=== PATIENT | male | born 1975 | race Caucasian/White ===

== ENCOUNTER 2018-01-24 13:37 | Emergency (ER) | payer MEDICARE, OTHER ==
[~2018-01-24] VITALS: Ht 177.8 cm; Wt 113.4 kg
--- OUTSIDE RECORDS SUMMARY | 2018-01-24 13:42 | XMS REPORT ---
Author Author DALE ALVES Organization [facility] Address [address] [place] [address] Care Team Providers Care Puncher And Fastener Name Role Phone DALE ALVES Unavailable PROBLEMS Type Condition ICD9-CM Code [id number] Code Onset Dates Condition Status SNOMED Code Problem Generalized anxiety disorder F41.1 Active 91747070 Problem Uncomplicated alcohol dependence F10.20 Active 78535653 Problem Anxiety F41.9 Active 70270297 Problem Mild episode of recurrent major depressive disorder F33.0 Active 800709157 Problem Alcohol dependence in remission F10.21 Active [id number] ALLERGIES Substance Reaction Event Type Date Status Shrimp anaphylaxis Non Drug Allergy Dec, Active ENCOUNTERS Encounter Location Date Diagnosis [facility] [id number] [place] [phone] Feb, [facility] [id number] [place] [phone] Feb, [facility] [address] [place] [address] Jan, [facility] [id number] [place] [phone] Jan, [facility] [id number] [place] [phone] Jan, [facility] [id number] [place] [phone] Jan, [facility] [id number] [place] [phone] Jan, Generalized anxiety disorder F41.1 ; Mild episode of recurrent major depressive disorder F33.0 and Alcohol dependence in remission F10.21 [facility] [id number] [place] [phone] Jan, Seizures R56.9 and Anxiety F41.9 [facility] [address] [facility] [id number] [place] [address] Dec, 2017 Cervicalgia M54.2 and Seizures R56.9 [facility] [address] [facility] [id number] [place] [address] 16 Dec, 2017 Cervicalgia M54.2 and Seizures R56.9 IMMUNIZATIONS No Known Immunizations SOCIAL HISTORY Never Assessed REASON FOR VISIT Establish Care, PT reports his main concern is he currently takes depakote and is running low. PT states Dr. Salazar at the [facility] in [place]. -Min GALAN , PT has been having muscle spasms on his left side of neck and his left arm. Pt describes it has burning, Pt notes it was treated in the past with Cyclobenzaprine -Min GALAN PLAN OF CARE Activity Details Follow Up 4 Weeks Reason:seizures VITAL SIGNS Height 74 in 2017-12-19 Weight 179.2 lbs 2017-12-19 Temperature 98.2 degrees Fahrenheit 2017-12-19 Heart Rate 105 bpm 2017-12-19 Respiratory Rate 20 2017-12-19 Oximetry 94 % 2017-12-19 BMI 23.01 kg/m2 2017-12-19 Blood pressure systolic 122 mmHg 2017-12-19 Blood pressure diastolic 72 mmHg 2017-12-19 MEDICATIONS Medication Instructions Dosage Frequency Start Date End Date Duration Status Lexapro Active Depakote Active Depakote 500 mg Orally 2 times a day 1 tablet 12h Dec, Active Amitriptyline HCl Active Abilify Active Cyclobenzaprine HCl 10 mg Orally 2 times a day 1 tablet as needed 12h Dec, Active Meclizine HCl Active RESULTS No Results PROCEDURES Procedure Date Ordered Result Body Site [facility] VISIT NEW PATIENT Dec 19, 2017 INSTRUCTIONS MEDICATIONS ADMINISTERED No Known Medications MEDICAL (GENERAL) HISTORY Type Description Date Medical History focal epilepsy Medical History Depression Surgical History Broke pinky on left hand Hospitalization History Seizure activity x 3 days [place] Hospitalization History PT was in a [place], [place] x27 days [phone]
--- OUTSIDE RECORDS SUMMARY | 2018-01-24 13:42 | XMS REPORT ---
Author Rudi Santos [facility] Address Unknown Phone Unavailable Care Team Providers Care Milieu Coordinator Name Role Phone Rudi Magaña Unavailable Allergies, Adverse Reactions, Alerts Substance Reaction Event Type N.K.D.A. Info Not Available Non Drug Allergy Problems Problem Type Condition Code Onset Dates Condition Status Problem History of migraine Z86.69 Active Assessment Seizure disorder G40.909 Active Problem Vertigo R42 Active Assessment History of migraine Z86.69 Active Assessment Folliculitis L73.9 Active Medications Medication Code System Code Instructions Start Date End Date Status Dosage Sumatriptan Succinate [facility] [address]-41 100 MG Orally Twice a day 1 tab at onset of headache, repeat in 2 hrs if headache persists Flonase Allergy Relief [facility] [address]-91 50 MCG/ACT Nasally bid Feb 21, 2016 1 spray in each nostril Triamcinolone Acetonide [facility] [address]-63 0.1 % Externally Twice a day Apr 10, 2016 May 08, 2016 1 application to affected area Amitriptyline HCl [facility] [address]-98 10 MG Orally Once a day Apr 10, 2016 1 tablet Sumatriptan Succinate [facility] [address]-00 100 MG Orally Twice a day Feb 21, 2016 1 tab at onset of headache, repeat in 2 hrs if headache persists Meclizine HCl [facility] [address]-04 25 MG Orally every 6 hrs as needed for dizziness Feb 21, 2016 1 tablet as needed Doxycycline Monohydrate [facility] [address]-11 100 MG Orally every 12 hrs AprApr 24, 2016 1 capsule Levetiracetam [facility] [address]-40 1000 MG Orally bid 1 tablet Procedures Procedure Coding System Code Date ESTAB PT LEVEL III CPT-4 79142 Apr 10, 2016 REPLACED BY [facility] VISIT ESTABLISHED PATIENTS CPT-4 G0467 Apr 10, 2016 Vital Signs Date/Time: Apr 10, 2016 Temperature 97.4 F Weight 273.0 lbs Height 74 in Pain Scale 2 0-10 BMI 35.05 Index Blood Pressure Diastolic 68 mm Hg Blood Pressure Systolic 104 mm Hg Results No Known Results Summary Purpose e[employer]Works Submission
--- OUTSIDE RECORDS SUMMARY | 2018-01-24 13:42 | XMS REPORT ---
Author Rudi Santos Organization [employer] Address Unknown Phone Unavailable Care Team Providers Care Engineer Conductor Name Role Phone Rudi aMgaña CP Unavailable Allergies, Adverse Reactions, Alerts Substance Reaction Event Type N.K.D.A. Info Not Available Non Drug Allergy Problems Problem Type Condition Code Onset Dates Condition Status Problem History of migraine Z86.69 Active Assessment Vertigo R42 Active Problem Vertigo R42 Active Assessment Acute sinusitis J01.90 Active Assessment Seizure disorder G40.909 Active Assessment History of migraine Z86.69 Active Medications Medication Code System Code Instructions Start Date End Date Status Dosage Levetiracetam [facility] [address]-82 500 MG Orally bid Jan 24, 2016 1 tablet Azithromycin [facility] [address]-78 250 MG Orally Once a day Feb 21, 2016 Mar 06, 2016 2 tablets on the first day, then 1 tablet daily for 4 days Sumatriptan Succinate [facility] [address]-50 100 MG Orally Twice a day Feb 21, 2016 1 tab at onset of headache, repeat in 2 hrs if headache persists Levetiracetam [facility] [address]-52 1000 MG Orally bid 1 tablet Meclizine HCl [facility] [address]-12 25 MG Orally every 6 hrs as needed for dizziness Feb 21, 2016 1 tablet as needed Flonase Allergy Relief [facility] [address]-57 50 MCG/ACT Nasally bid Feb 21, 2016 1 spray in each nostril Procedures Procedure Coding System Code Date ESTAB PT LEVEL III CPT-4 65807 Feb 21, 2016 [facility] VISIT ESTABLISHED PATIENTS CPT-4 G0467 Feb 21, 2016 Vital Signs Date/Time: Feb 21, 2016 Temperature 97.6 F Weight 278 lbs Height 74 in Pain Scale 6 0-10 BMI 35.69 Index Blood Pressure Diastolic 75 mm Hg Blood Pressure Systolic 113 mm Hg Results No Known Results Summary Purpose [employer] Submission
[2018-01-24] MEDS ORDERED: PROCHLORPERAZINE 10 MG/2ML INJ (COMPAZINE) IV ONE (14:45)
[2018-01-24] MEDS ORDERED: NS IV 1000 ML 1,000 ML IV SCH (14:45)
[2018-01-24] MEDS ORDERED: diphenhydrAMINE 50 MG/ML INJ (BENADRYL) IVP ONE (14:45)
[2018-01-24] MEDS ORDERED: KETOROLAC 30 MG/ML VIAL IVP ONE (14:45)
--- NOTE | 2018-01-24 14:45 | ED Headache ---
General Chief Complaint: Head/Cervical Problems Stated Complaint: HEADACHE;LIGHT HEADED Source: patient History of Present Illness Date Seen by Provider: Jan 24, 2018 Time Seen by Provider: 14:35 Initial Comments This 42-year-old white male presents with a complaint of a headache that began 2 hours prior to presentation emergency department. Patient has had a long- standing history of headaches that have been caused by migraines. 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 The patient was visiting with friends 2 hours ago and his headache which is global and severe began. The patient has had no associated fever, chills, photophobia, stiff neck, vomiting, or diaphoresis. Allergies and Home Medications Allergies Coded Allergies: No Known Drug Allergies (Unverified , 01/24/18) Patient Home Medication List Home Medication List Reviewed: Yes Review of Systems Review of Systems Constitutional: No chills, No fever; malaise Eyes: Denies Blurred Vision, Denies Photophobia Ears, Nose, Mouth, Throat: denies ear pain Respiratory: No cough Cardiovascular: No chest pain Gastrointestinal: No diarrhea, No nausea Genitourinary: no symptoms reported Musculoskeletal: No back pain Skin: No rash Psychiatric/Neurological: No Symptoms Reported Past Ttgbxig-Rbires-Abttyt Hx Past Med/Social Hx: Reviewed Nursing Past Med/Soc Hx Physical Exam Vital Signs Vital Signs - First Documented 01/24/18 13:37 Temp 98.6 Pulse 88 Resp 18 B/P (MAP) 120/77 (91) Pulse Ox 98 O2 Delivery Room Air Capillary Refill : Height, Weight, BMI Height: '" Weight: lbs. oz. kg; BMI Method: General Appearance: WD/WN, mild distress HEENT: normal ENT inspection Neck: normal inspection Cardiovascular: regular rate, rhythm Respiratory: chest non-tender, lungs clear Gastrointestinal: normal bowel sounds, non tender, soft Back: normal inspection Extremities: normal range of motion, non-tender, normal inspection Psychiatric: oriented x 3 Crainal Nerves: normal hearing, normal speech, PERRL; No abnormal eye position Motor/Sensory: no motor deficit, no sensory deficit Skin: normal color, warm/dry Progress/Results/Core Measures Results/Orders My Orders Orders - CHRISTOPHE ROTHMAN MD Iv 1000 Ml (Sodium Chloride 0.9%) (01/24/18 14:45) Diphenhydramine Injection (Benadryl Inje (01/24/18 14:45) Ketorolac Injection (Toradol Injection) (01/24/18 14:45) Prochlorperazine Injection (Compazine In (01/24/18 14:45) Medications Given in ED Current Medications Medications Dose Ordered Sig/Luis Route Start Time Stop Time Status Last Admin Dose Admin Diphenhydramine HCl 25 mg ONCE ONCE IVP 01/24/18 14:45 01/24/18 14:46 DC 01/24/18 15:16 25 MG Ketorolac Tromethamine 30 mg ONCE ONCE IVP 01/24/18 14:45 01/24/18 14:46 DC 01/24/18 15:15 30 MG Prochlorperazine Edisylate 10 mg ONCE ONCE IV 01/24/18 14:45 01/24/18 14:46 DC 01/24/18 15:15 10 MG Vital Signs/I&O 01/24/18 13:37 Temp 98.6 Pulse 88 Resp 18 B/P (MAP) 120/77 (91) Pulse Ox 98 O2 Delivery Room Air Progress Progress Note : Time: 15:52 Progress Note The patient's headache was treated with accommodation of the Toradol, Compazine , and Benadryl IV. Patient's headache abated and he wanted to go home and follow up with his doctor on Saturday. Departure Impression Primary Impression: Migraine Qualified Codes: G43.009 - Migraine without aura, not intractable, without status migrainosus Disposition: 01 HOME, SELF-CARE Condition: Improved Departure-Patient Inst. Decision time for Depature: 15:54 Referrals: [facility] [place] Patient Instructions: Migraine Headache (DC) Add. Discharge Instructions: Close follow-up with them [facility] on Saturday. Rest at home this . Return if any problems or questions. All discharge instructions reviewed with patient and/or family. Voiced understanding. CHRISTOPHE ROTHMAN MD Jan 24, 2018 14:45
[2018-01-24 16:19] VITALS: BP 103/64
== END 2018-01-24 16:19 | disposition home or self-care (01) ==
LOC: EDUNIT# 13:37 → ER 13:39
DX: G43.909 Migraine, unspecified, not intractable, without status migrainosus (principal); G40.109 Localization-related (focal) (partial) symptomatic epilepsy and epileptic syndromes with simple partial seizures, not intractable, without status epilepticus; Z87.820 Personal history of traumatic brain injury
CPT/HCPCS: 96361; 96374; 96375; 99283

== ENCOUNTER 2018-08-10 07:57 | Emergency (ER) | payer MEDICARE, MEDICAID ==
[~2018-08-10] VITALS: Ht 190.5 cm; Wt 122.5 kg
[2018-08-10] MEDS ORDERED: DEPAKOTE (08:12)
[2018-08-10] MEDS ORDERED: NS IV 1000 ML 1,000 ML IV ONE (08:14)
[2018-08-10] MEDS ORDERED: PROMETHAZINE INJ 25 MG/ML (PHENERGAN) AMP IVP ONE (08:15)
[2018-08-10] MEDS ORDERED: KETOROLAC 30 MG/ML VIAL IVP ONE (08:15)
[2018-08-10 08:34] LABS: BASOPHILS % (AUTO) 0 % (0-10); EOSINOPHILS # (AUTO) 0.2 10^3/uL (0.0-0.3); EOSINOPHILS % (AUTO) 4 % (0-10); HEMATOCRIT 41 % (40-54); HEMOGLOBIN 14.1 G/DL (13.3-17.7); LYMPHOCYTES # (AUTO) 1.1 X 10^3 (1.0-4.0); LYMPHOCYTES % (AUTO) 24 % (12-44); MEAN CORPUSCULAR HEMOGLOBIN 30 PG (25-34); MEAN CORPUSCULAR HGB CONC 35 G/DL (32-36); MEAN CORPUSCULAR VOLUME 87 FL (80-99); MEAN PLATELET VOLUME 9.5 FL (7.4-10.4); MONOCYTES # (AUTO) 0.6 X 10^3 (0.0-1.0); MONOCYTES % (AUTO) 12 % (0-12); NEUTROPHILS # (AUTO) 2.8 X 10^3 (1.8-7.8); NEUTROPHILS % (AUTO) 60 % (42-75); PLATELET COUNT 223 10^3/uL (130-400); RED CELL DISTRIBUTION WIDTH 12.5 % (10.0-14.5); WHITE BLOOD COUNT 4.6 10^3/uL (4.3-11.0)
--- NOTE | 2018-08-10 08:42 | ED Headache ---
General Chief Complaint: Head/Cervical Problems Stated Complaint: MIGRAINE Nursing Triage Note: ARRIVED VIA AMB TO ROOM 06 WITH COMPLAINTS OF A MIGRAINE FOR A FEW DAYS. HAS NOT TAKEN ANYTHING FOR THE PAIN. Nursing Sepsis Screen: No Definite Risk Source: patient Exam Limitations: no limitations History of Present Illness Date Seen by Provider: Aug 10, 2018 Time Seen by Provider: 08:07 Initial Comments This 42-year-old gentleman presents to the emergency room with a migraine that started yesterday. He does have a history of migraines. He sometimes treats them with Imitrex but he does not have any Imitrex at present. He states he has had episodes of "dazing out". He reports being diagnosed with focal epilepsy by a neurologist on the [facility]. He does take Depakote for this. His associated symptoms are nausea, "fluffy vision", ringing in his ears, and sound sensitivity. He took ibuprofen last night and his Depakote this morning. By description, the seizures he describes sound like absence seizures. He thinks he may have had a couple over the last 24 hours. Allergies and Home Medications Allergies Coded Allergies: No Known Drug Allergies (Unverified , 01/24/18) Patient Home Medication List Home Medication List Reviewed: Yes Review of Systems Review of Systems Constitutional: no symptoms reported Eyes: See HPI (migraine aura) Ears, Nose, Mouth, Throat: see HPI Respiratory: no symptoms reported Cardiovascular: no symptoms reported Gastrointestinal: see HPI Genitourinary: no symptoms reported Musculoskeletal: no symptoms reported Skin: no symptoms reported Psychiatric/Neurological: See HPI Past Rgfkotg-Knsjuv-Xmqvzi Hx Past Med/Social Hx: Reviewed and Corrections made Patient Social History Type Used: Cigarettes 2nd Hand Smoke Exposure: Yes Recent Foreign Travel: No Contact w/Someone Who Travel: No Recent Infectious Disease Expo: No Recent Hopitalizations: No Seasonal Allergies Seasonal Allergies: No Past Medical History Surgeries: No Respiratory: No Cardiac: No Neurological: Yes Headaches /Migraines, Seizure Disorder ("focal epilepsy") Genitourinary: No Gastrointestinal: No Musculoskeletal: No Endocrine: No HEENT: No Cancer: No Did You Recieve Any Treatments: No Psychosocial: No Integumentary: No Blood Disorders: No Physical Exam Vital Signs Vital Signs - First Documented 08/10/18 08:04 Temp 95.9 Pulse 62 Resp 16 Pulse Ox 99 O2 Delivery Room Air Capillary Refill : Less Than 3 Seconds Height, Weight, BMI Height: 6'3.00" Weight: 270lbs. oz. 122.949904jw; BMI Method:Stated General Appearance: WD/WN, mild distress HEENT: PERRL/EOMI, normal ENT inspection, TMs normal, pharynx normal Neck: normal inspection Cardiovascular: regular rate, rhythm, no edema, no murmur Respiratory: lungs clear, normal breath sounds, no respiratory distress, no accessory muscle use Extremities: normal inspection Psychiatric: alert, oriented x 3 Crainal Nerves: normal hearing, normal speech, PERRL Motor/Sensory: no motor deficit, no sensory deficit Skin: normal color, warm/dry Progress/Results/Core Measures Results/Orders Lab Results Laboratory Tests Test 08/10/18 08:25 Range/Units White Blood Count 4.6 4.3-11.0 10^3/uL Red Blood Count 4.68 4.35-5.85 10^6/uL Hemoglobin 14.1 13.3-17.7 G/DL Hematocrit 41 40-54 % Mean Corpuscular Volume 87 80-99 FL Mean Corpuscular Hemoglobin 30 25-34 PG Mean Corpuscular Hemoglobin Concent 35 32-36 G/DL Red Cell Distribution Width 12.5 10.0-14.5 % Platelet Count 223 130-400 10^3/uL Mean Platelet Volume 9.5 7.4-10.4 FL Neutrophils (%) (Auto) 60 42-75 % Lymphocytes (%) (Auto) 24 12-44 % Monocytes (%) (Auto) 12 0-12 % Eosinophils (%) (Auto) 4 0-10 % Basophils (%) (Auto) 0 0-10 % Neutrophils # (Auto) 2.8 1.8-7.8 X 10^3 Lymphocytes # (Auto) 1.1 1.0-4.0 X 10^3 Monocytes # (Auto) 0.6 0.0-1.0 X 10^3 Eosinophils # (Auto) 0.2 0.0-0.3 10^3/uL Basophils # (Auto) 0.0 0.0-0.1 10^3/uL Sodium Level 139 135-145 MMOL/L Potassium Level 3.7 3.6-5.0 MMOL/L Chloride Level 107 98-107 MMOL/L Carbon Dioxide Level 24 21-32 MMOL/L Anion Gap 8 5-14 MMOL/L Blood Urea Nitrogen 16 7-18 MG/DL Creatinine 1.03 0.60-1.30 MG/DL Estimat Glomerular Filtration Rate > 60 BUN/Creatinine Ratio 16 Glucose Level 96 70-105 MG/DL Calcium Level 9.3 8.5-10.1 MG/DL Magnesium Level 2.1 1.8-2.4 MG/DL Valproic Acid (Depakene) Level 56.2 50.0-100.0 UG/ML My Orders Orders - BUCK BOSE MD Ketorolac Injection (Toradol Injection) (08/10/18 08:15) Promethazine Injection (Phenergan Injec (08/10/18 08:15) Saline Lock/Iv-Start (08/10/18 08:14) Ns Iv 1000 Ml (Sodium Chloride 0.9%) (08/10/18 08:14) Basic Metabolic Panel (08/10/18 08:14) Cbc With Automated Diff (08/10/18 08:14) Magnesium (08/10/18 08:14) Valproic Acid (08/10/18 08:14) Ondansetron Injection (Zofran Injectio (08/10/18 09:15) Medications Given in ED Current Medications Medications Dose Ordered Sig/Luis Route Start Time Stop Time Status Last Admin Dose Admin Ketorolac Tromethamine 30 mg ONCE ONCE IVP 08/10/18 08:15 08/10/18 08:16 DC 08/10/18 08:25 30 MG Promethazine HCl 25 mg ONCE ONCE IVP 08/10/18 08:15 08/10/18 08:16 DC 08/10/18 08:26 25 MG Sodium Chloride 1,000 ml @ 0 mls/hr Q0M ONCE IV 08/10/18 08:14 08/10/18 08:17 DC 08/10/18 08:26 1,000 MLS/HR Vital Signs/I&O 08/10/18 08:04 Temp 95.9 Pulse 62 Resp 16 B/P (MAP) Pulse Ox 99 O2 Delivery Room Air Progress Progress Note #1: Time: 08:50 Progress Note Patient is being treated with IV fluids, Phenergan, and Toradol. We will reassess when these therapies are done. Electrolytes and Depakote level are being checked. Progress Note #2: Time: 09:03 Progress Note Patient is feeling better. He still has some residual nausea. He believes he can return home and rest now. Zofran will be given before dismissal. Labs were reviewed and were unremarkable. Departure Impression Primary Impression: Migraine Qualified Codes: G43.909 - Migraine, unspecified, not intractable, without status migrainosus Additional Impression: Nausea Disposition: 01 HOME, SELF-CARE Condition: Improved Departure-Patient Inst. Decision time for Depature: 09:03 Referrals: [facility]/ (PCP) Primary Care Physician DALE ALVES (Family) Primary Care Physician Patient Instructions: Migraine Headache (DC) Add. Discharge Instructions: Drink plenty of clear liquids. Try to rest in a quiet, calm, dark environment for the next several hours. Continue your medications as previously prescribed. For pain 8 take ibuprofen up to 600 mg every 6 hours as needed and/or Tylenol ( acetaminophen) up to 1000 mg every 6 hours as needed. Return to care if you have worsening symptoms or you are not improving as expected. Fill the Zofran prescription provided if needed to treat nausea. All discharge instructions reviewed with patient and/or family. Voiced understanding. Scripts Ondansetron (Ondansetron Odt) 4 Mg Tab.rapdis 4 MG SL Q4H PRN for NAUSEA/VOMITING, #10 TAB Prov: BUCK BOSE MD 08/10/18 BUCK BOSE MD Aug 10, 2018 08:42
[2018-08-10 08:50] LABS: BUN/CREATININE RATIO 16; CALCIUM 9.3 MG/DL (8.5-10.1); CARBON DIOXIDE 24 MMOL/L (21-32); CHLORIDE 107 MMOL/L (98-107); CREATININE SERUM 1.03 MG/DL (0.60-1.30); GFR ESTIMATED > 60; GLUCOSE 96 MG/DL (70-105); MAGNESIUM 2.1 MG/DL (1.8-2.4); POTASSIUM 3.7 MMOL/L (3.6-5.0); SODIUM 139 MMOL/L (135-145)
[2018-08-10 08:57] LABS: VALPROIC ACID 56.2 UG/ML (50.0-100.0)
[2018-08-10] MEDS ORDERED: ONDA4TAB11 SL (09:11)
[2018-08-10] MEDS ORDERED: ONDANSETRON 4 MG/2 ML (SDV) Z0FRAN IVP ONE (09:15)
[2018-08-10 09:22] VITALS: BP 105/67
== END 2018-08-10 09:21 | disposition home or self-care (01) ==
LOC: EDUNIT# 07:57 → ER 08:00
DX: G43.909 Migraine, unspecified, not intractable, without status migrainosus (principal); R11.0 Nausea; G40.909 Epilepsy, unspecified, not intractable, without status epilepticus; Z77.22 Contact with and (suspected) exposure to environmental tobacco smoke (acute) (chronic)
CPT/HCPCS: 36415; 80048; 80164; 83735; 85025

== ENCOUNTER 2018-09-18 13:33 | Emergency (ER) | payer MEDICARE, MEDICAID ==
[~2018-09-18] VITALS: Ht 190.5 cm; Wt 113.4 kg
[~2018-09-18 13:33] MED LIST: DEPAKOTE; ONDA4TAB11 SL
[2018-09-18] MEDS ORDERED: NS IV 1000 ML 1,000 ML IV ONE (13:40)
[2018-09-18] MEDS ORDERED: KETOROLAC 30 MG/ML VIAL IVP STA (13:40)
[2018-09-18 13:52] LABS: BASOPHILS % (AUTO) 0 % (0-10); EOSINOPHILS % (AUTO) 0 % (0-10); HEMATOCRIT 40 % (40-54); LYMPHOCYTES # (AUTO) 1.2 X 10^3 (1.0-4.0); LYMPHOCYTES % (AUTO) 15 % (12-44); MEAN CORPUSCULAR HEMOGLOBIN 30 PG (25-34); MEAN CORPUSCULAR HGB CONC 35 G/DL (32-36); MEAN CORPUSCULAR VOLUME 86 FL (80-99); MEAN PLATELET VOLUME 9.5 FL (7.4-10.4); MONOCYTES # (AUTO) 0.4 X 10^3 (0.0-1.0); MONOCYTES % (AUTO) 5 % (0-12); NEUTROPHILS # (AUTO) 6.4 X 10^3 (1.8-7.8); NEUTROPHILS % (AUTO) 80 % (42-75); PLATELET COUNT 310 10^3/uL (130-400); RED CELL DISTRIBUTION WIDTH 12.8 % (10.0-14.5); WHITE BLOOD COUNT 8.1 10^3/uL (4.3-11.0)
[2018-09-18 14:10] LABS: ALANINE AMINOTRANSFERASE 24 U/L (0-55); ALBUMIN 4.5 GM/DL (3.2-4.5); ALKALINE PHOSPHATASE 63 U/L (40-136); BILIRUBIN,TOTAL 1.7 MG/DL (0.1-1.0); BUN/CREATININE RATIO 20; CALCIUM 9.9 MG/DL (8.5-10.1); CARBON DIOXIDE 16 MMOL/L (21-32); CHLORIDE 102 MMOL/L (98-107); CREATININE SERUM 1.46 MG/DL (0.60-1.30); GFR ESTIMATED 53; GLUCOSE 101 MG/DL (70-105); MAGNESIUM 1.8 MG/DL (1.8-2.4); POTASSIUM 4.1 MMOL/L (3.6-5.0); SODIUM 131 MMOL/L (135-145); TOTAL PROTEIN 7.5 GM/DL (6.4-8.2)
[2018-09-18 14:38] LABS: BILIRUBIN,URINE NEGATIVE (NEGATIVE); CLARITY,URINE CLEAR; COLOR,URINE YELLOW; GLUCOSE, URINE (UA) NEGATIVE (NEGATIVE); KETONES,URINE 3+ (NEGATIVE); LEUKOCYTE ESTERASE ,URINE NEGATIVE (NEGATIVE); NITRITE,URINE NEGATIVE (NEGATIVE); PH,URINE 5 (5-9); PROTEIN,URINE NEGATIVE (NEGATIVE); UROBILINOGEN,URINE NORMAL (NORMAL)
[2018-09-18 14:45] LABS: BACTERIA,URINE NEGATIVE /HPF; SQUAMOUS EPITHELIAL CELL,UR RARE /HPF
[2018-09-18] MEDS ORDERED: LACTATED RINGERS 1,000 ML IV ONE (15:02)
--- NOTE | 2018-09-18 15:06 | ED Syncope ---
General Chief Complaint: Dizziness/Syncope Stated Complaint: LOSS OF CONSCIOUSNESS Nursing Triage Note: PT STATES HE WAS AT WORK AND BECAME DIZZY ABOUT 1-2 HRS AGO. ALSO NAUSEA, HEADACHE, SWEATS, AND SYNCOPAL EPISODE WHILE SITTING DOWN, DID NOT FALL. Source of Information: Patient Exam Limitations: No Limitations History of Present Illness Date Seen by Provider: September 18, 2018 Time Seen by Provider: 13:34 Initial Comments Here with report of syncopal episode. Apparently he was at work when he became nauseated and was sweating. He was sitting down and then laid down when he passed out. Did not have any injuries. EMS was summoned. Denies episode like this previously. 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 Denies vomiting or diarrhea but does have some nausea. Also complains of headache. Timing/Prior Episodes: No Prior History Symptoms Prior to Episode: Lightheadedness, Nausea Precipitating Factors: Activity Loss of Consciousness: Brief (Seconds) Current Symptoms: No Chest Pain, No Diaphoresis; Headache, Lightheadedness, Nausea; No Shallow/Rapid Breathing, No Weak/Absent Pulse, No Weakness Allergies and Home Medications Allergies Coded Allergies: iodine (Verified Allergy, Unknown, 09/18/18) Home Medications Ondansetron 4 Mg Tab.rapdis, 4 MG SL Q4H PRN for NAUSEA/VOMITING Prescribed by: BUCK JAFFE on 08/10/18 0911 Patient Home Medication List Home Medication List Reviewed: Yes Review of Systems Constitutional: no symptoms reported EENTM: no symptoms reported Respiratory: no symptoms reported Cardiovascular: see HPI, palpitations, syncope Gastrointestinal: No abdominal pain; nausea Genitourinary: no symptoms reported Musculoskeletal: no symptoms reported Skin: no symptoms reported Psychiatric/Neurological: See HPI All Other Systems Reviewed Negative Unless Noted: Yes Past Fzkzvnp-Dhswzy-Euovam Hx Past Med/Social Hx: Reviewed Nursing Past Med/Soc Hx Patient Social History Type Used: Cigarettes 2nd Hand Smoke Exposure: Yes Recent Foreign Travel: No Contact w/Someone Who Travel: No Recent Infectious Disease Expo: No Recent Hopitalizations: No Seasonal Allergies Seasonal Allergies: No Past Medical History Surgeries: No Respiratory: No Cardiac: No Neurological: Yes Headaches /Migraines, Seizure Disorder Genitourinary: No Gastrointestinal: No Musculoskeletal: No Endocrine: No HEENT: No Cancer: No Did You Recieve Any Treatments: No Psychosocial: No Integumentary: No Blood Disorders: No Family Medical History Reviewed Nursing Family Hx Physical Exam Vital Signs Vital Signs - First Documented 09/18/18 13:34 Temp 98.3 Pulse 76 Resp 24 B/P (MAP) 122/88 (99) Pulse Ox 96 O2 Delivery Room Air Capillary Refill : Less Than 3 Seconds Height, Weight, BMI Height: 6'3.00" Weight: 250lbs. oz. 113.515439pw; BMI Method:Stated General Appearance: No Apparent Distress, WD/WN HEENT: PERRL/EOMI, Pharynx Normal Neck: Non Tender, Supple Cardiovascular: Regular Rate, Rhythm, No Murmur Respiratory: Lungs Clear, Normal Breath Sounds Gastrointestinal: Non Tender, Soft Back: Normal Inspection, No CVA Tenderness, No Vertebral Tenderness Extremities: Normal Range of Motion, Non Tender Neurologic/Psychiatric: Alert, Oriented x3 Cranial Nerves: Normal Hearing, Normal Speech, PERRL Motor/Sensory: No Motor Deficit, No Sensory Deficit Skin: Normal Color, Warm/Dry Progress/Results/Core Measures Results/Orders Lab Results Laboratory Tests Test 09/18/18 13:40 09/18/18 14:30 Range/Units White Blood Count 8.1 4.3-11.0 10^3/uL Red Blood Count 4.65 4.35-5.85 10^6/uL Hemoglobin 14.0 13.3-17.7 G/DL Hematocrit 40 40-54 % Mean Corpuscular Volume 86 80-99 FL Mean Corpuscular Hemoglobin 30 25-34 PG Mean Corpuscular Hemoglobin Concent 35 32-36 G/DL Red Cell Distribution Width 12.8 10.0-14.5 % Platelet Count 310 130-400 10^3/uL Mean Platelet Volume 9.5 7.4-10.4 FL Neutrophils (%) (Auto) 80 H 42-75 % Lymphocytes (%) (Auto) 15 12-44 % Monocytes (%) (Auto) 5 0-12 % Eosinophils (%) (Auto) 0 0-10 % Basophils (%) (Auto) 0 0-10 % Neutrophils # (Auto) 6.4 1.8-7.8 X 10^3 Lymphocytes # (Auto) 1.2 1.0-4.0 X 10^3 Monocytes # (Auto) 0.4 0.0-1.0 X 10^3 Eosinophils # (Auto) 0.0 0.0-0.3 10^3/uL Basophils # (Auto) 0.0 0.0-0.1 10^3/uL Sodium Level 131 L 135-145 MMOL/L Potassium Level 4.1 3.6-5.0 MMOL/L Chloride Level 102 98-107 MMOL/L Carbon Dioxide Level 16 L 21-32 MMOL/L Anion Gap 13 5-14 MMOL/L Blood Urea Nitrogen 29 H 7-18 MG/DL Creatinine 1.46 H 0.60-1.30 MG/DL Estimat Glomerular Filtration Rate 53 BUN/Creatinine Ratio 20 Glucose Level 101 70-105 MG/DL Calcium Level 9.9 8.5-10.1 MG/DL Corrected Calcium 9.5 8.5-10.1 MG/DL Magnesium Level 1.8 1.8-2.4 MG/DL Total Bilirubin 1.7 H 0.1-1.0 MG/DL Aspartate Amino Transf (AST/SGOT) 34 5-34 U/L Alanine Aminotransferase (ALT/SGPT) 24 0-55 U/L Alkaline Phosphatase 63 40-136 U/L Troponin I < 0.028 <0.028 NG/ML Total Protein 7.5 6.4-8.2 GM/DL Albumin 4.5 3.2-4.5 GM/DL Urine Color YELLOW Urine Clarity CLEAR Urine pH 5 5-9 Urine Specific [place] 1.015 L 1.016-1.022 Urine Protein NEGATIVE NEGATIVE Urine Glucose (UA) NEGATIVE NEGATIVE Urine Ketones 3+ H NEGATIVE Urine Nitrite NEGATIVE NEGATIVE Urine Bilirubin NEGATIVE NEGATIVE Urine Urobilinogen NORMAL NORMAL MG/DL Urine Leukocyte Esterase NEGATIVE NEGATIVE Urine RBC (Auto) NEGATIVE NEGATIVE Urine RBC NONE /HPF Urine WBC NONE /HPF Urine Squamous Epithelial Cells RARE /HPF Urine Crystals NONE /LPF Urine Bacteria NEGATIVE /HPF Urine Casts NONE /LPF Urine Mucus NEGATIVE /LPF Urine Culture Indicated NO My Orders Orders - LEWIS GAYTAN MD Cbc With Automated Diff (09/18/18 13:40) Comprehensive Metabolic Panel (09/18/18 13:40) Magnesium (09/18/18 13:40) Troponin I (09/18/18 13:40) Ua Culture If Indicated (09/18/18 13:40) Ekg Tracing (09/18/18 13:40) Monitor-Rhythm Ecg Trace Only (09/18/18 13:40) Ed Iv/Invasive Line Start (09/18/18 13:40) Ns Iv 1000 Ml (Sodium Chloride 0.9%) (09/18/18 13:40) Ketorolac Injection (Toradol Injection) (09/18/18 13:40) Ed Iv/Invasive Line Start (09/18/18 15:02) Lactated Ringers (Lr 1000 Ml Iv Solution (09/18/18 15:02) Medications Given in ED Current Medications Medications Dose Ordered Sig/Luis Route Start Time Stop Time Status Last Admin Dose Admin Lactated Ringer's 1,000 ml @ 0 mls/hr Q0M ONCE IV 09/18/18 15:02 09/18/18 15:04 DC 09/18/18 15:23 1,000 MLS/HR Sodium Chloride 1,000 ml @ 0 mls/hr Q0M ONCE IV 09/18/18 13:40 09/18/18 13:42 DC 09/18/18 14:01 1,000 MLS/HR Vital Signs/I&O 09/18/18 13:34 Temp 98.3 Pulse 76 Resp 24 B/P (MAP) 122/88 (99) Pulse Ox 96 O2 Delivery Room Air Blood Pressure Mean: 99 Progress Progress Note : Progress Note Seen and evaluated. IV, labs, EKG, UA, normal saline 1 L bolus and Toradol 30 mg IV ordered. Monitor patient. 1505: Better. Ketones noted in urine. LR 1 L bolus ordered. Monitor patient. 1650: Patient is much better. Urinating again now. Discharged home with return precautions. Patient verbalize understanding instructions and agreement with plan. Initial ECG Impression Date: September 18, 2018 Initial ECG Impression Time: 13:38 Initial ECG Rate: 75 Initial ECG Rhythm: Normal Sinus Initial ECG Intervals: Normal Initial ECG Impression: Normal Initial ECG Comparisson: No Previous ECG Available Comment Sinus rhythm with normal axis. No evidence of ST elevation OR. No previous available. Interpreted by me. Departure Impression Primary Impression: Syncope Qualified Codes: R55 - Syncope and collapse Additional Impression: Dehydration Disposition: 01 HOME, SELF-CARE Condition: Improved Departure-Patient Inst. Decision time for Depature: 16:53 Referrals: [facility] (PCP) Primary Care Physician DALE ALVES (Family) Primary Care Physician Patient Instructions: Syncope (Fainting), Dehydration, Adult (DC) Add. Discharge Instructions: All discharge instructions reviewed with patient and/or family. Voiced understanding. Drink plenty of fluids. Eat a normal diet. Get plenty of rest tonight. Follow up with your Dr. in a few days for recheck. Return for worsening, fever, vomiting, weakness, breathing problems or other concerns as needed. LEWIS GAYTAN MD September 18, 2018 15:06
[2018-09-18 17:03] VITALS: BP 108/71
== END 2018-09-18 17:05 | disposition home or self-care (01) ==
LOC: EDUNIT# 13:33 → ER 13:35
DX: R55 Syncope and collapse (principal); E86.0 Dehydration; G43.909 Migraine, unspecified, not intractable, without status migrainosus; G40.909 Epilepsy, unspecified, not intractable, without status epilepticus; Z91.041 Radiographic dye allergy status; Z77.22 Contact with and (suspected) exposure to environmental tobacco smoke (acute) (chronic)
CPT/HCPCS: 36415; 80053; 81000; 83735; 84484; 85025; 93041

== ENCOUNTER 2018-12-02 11:01 | Emergency (ER) | payer MEDICARE, MEDICAID ==
[~2018-12-02] VITALS: Ht 190.5 cm; Wt 120.2 kg
--- NOTE | 2018-12-02 11:07 | ED General ---
General Stated Complaint: MIGRAINE Source of Information: Patient Exam Limitations: No Limitations History of Present Illness Date Seen by Provider: Dec 02, 2018 Time Seen by Provider: 11:06 Initial Comments To ER per EMS from [facility] with reports of a headache and weakness. He also has some left arm tingling and left facial tingling. He states that he sometimes gets this with his migraines. He also has a seizure disorder. His migraine was initially occipital, now is right temporal. He's got some nausea without vomiting. No fevers chills or head injury. This started this morning about 6 AM when he awakened, had a headache, some dizziness, went and sat down and then developed some weakness. Headache persists rated as 6 out of 10. Timing/Duration: 4-6 Hours Severity: Moderate Associated Systoms: Headaches Allergies and Home Medications Allergies Coded Allergies: iodine (Verified Allergy, Unknown, 09/18/18) Home Medications Ondansetron 4 Mg Tab.rapdis, 4 MG SL Q4H PRN for NAUSEA/VOMITING Prescribed by: BUCK JAFFE on 08/10/18 0934 Patient Home Medication List Home Medication List Reviewed: Yes Review of Systems Review of Systems Constitutional: see HPI EENTM: see HPI Respiratory: no symptoms reported Cardiovascular: no symptoms reported Genitourinary: no symptoms reported Musculoskeletal: no symptoms reported Skin: no symptoms reported Psychiatric/Neurological: See HPI, Headache Hematologic/Lymphatic: No Symptoms Reported Immunological/Allergic: no symptoms reported Past Ythcwxm-Zogqgt-Frijqi Hx Patient Social History Type Used: Cigarettes 2nd Hand Smoke Exposure: Yes Recent Hopitalizations: No Seasonal Allergies Seasonal Allergies: No Past Medical History Surgeries: No Respiratory: No Cardiac: No Neurological: Yes Headaches /Migraines, Seizure Disorder Genitourinary: No Gastrointestinal: No Musculoskeletal: No Endocrine: No HEENT: No Cancer: No Did You Recieve Any Treatments: No Psychosocial: No Integumentary: No Blood Disorders: No Physical Exam Vital Signs Capillary Refill : Height, Weight, BMI Height: 6'3.00" Weight: 250lbs. oz. 113.778725yh; BMI Method:Stated General Appearance: No Apparent Distress, WD/WN, Other (alert, converses with me appropriately,) Eyes: Bilateral Eye Normal Inspection, Bilateral Eye PERRL HEENT: PERRL/EOMI, TMs Normal Neck: Full Range of Motion, Normal Inspection Respiratory: No Accessory Muscle Use, No Respiratory Distress Cardiovascular: Regular Rate, Rhythm, Normal Peripheral Pulses Gastrointestinal: Normal Bowel Sounds, Non Tender, Soft Extremity: Normal Capillary Refill, Normal Inspection Neurologic/Psychiatric: Alert, Oriented x3 Skin: Normal Color, Warm/Dry Comments He moves all extremities Progress/Results/Core Measures Suspected Sepsis SIRS Temperature: Pulse: Respiratory Rate: Laboratory Tests 12/02/18 11:17: White Blood Count 4.7 Blood Pressure / Mean: Laboratory Tests 12/02/18 11:17: Creatinine 1.19, Platelet Count 249, Total Bilirubin 0.5 Results/Orders Lab Results Laboratory Tests Test 12/02/18 11:17 Range/Units White Blood Count 4.7 4.3-11.0 10^3/uL Red Blood Count 4.82 4.35-5.85 10^6/uL Hemoglobin 14.4 13.3-17.7 G/DL Hematocrit 42 40-54 % Mean Corpuscular Volume 88 80-99 FL Mean Corpuscular Hemoglobin 30 25-34 PG Mean Corpuscular Hemoglobin Concent 34 32-36 G/DL Red Cell Distribution Width 12.6 10.0-14.5 % Platelet Count 249 130-400 10^3/uL Mean Platelet Volume 9.5 7.4-10.4 FL Neutrophils (%) (Auto) 50 42-75 % Lymphocytes (%) (Auto) 37 12-44 % Monocytes (%) (Auto) 8 0-12 % Eosinophils (%) (Auto) 5 0-10 % Basophils (%) (Auto) 1 0-10 % Neutrophils # (Auto) 2.3 1.8-7.8 X 10^3 Lymphocytes # (Auto) 1.7 1.0-4.0 X 10^3 Monocytes # (Auto) 0.4 0.0-1.0 X 10^3 Eosinophils # (Auto) 0.2 0.0-0.3 10^3/uL Basophils # (Auto) 0.0 0.0-0.1 10^3/uL Sodium Level 138 135-145 MMOL/L Potassium Level 4.2 3.6-5.0 MMOL/L Chloride Level 105 98-107 MMOL/L Carbon Dioxide Level 23 21-32 MMOL/L Anion Gap 10 5-14 MMOL/L Blood Urea Nitrogen 19 H 7-18 MG/DL Creatinine 1.19 0.60-1.30 MG/DL Estimat Glomerular Filtration Rate > 60 BUN/Creatinine Ratio 16 Glucose Level 97 70-105 MG/DL Calcium Level 9.5 8.5-10.1 MG/DL Corrected Calcium 9.4 8.5-10.1 MG/DL Total Bilirubin 0.5 0.1-1.0 MG/DL Aspartate Amino Transf (AST/SGOT) 12 5-34 U/L Alanine Aminotransferase (ALT/SGPT) 12 0-55 U/L Alkaline Phosphatase 60 40-136 U/L Total Protein 6.7 6.4-8.2 GM/DL Albumin 4.1 3.2-4.5 GM/DL My Orders Orders - DONALD PERES APRN Cbc With Automated Diff (12/02/18 11:04) Comprehensive Metabolic Panel (12/02/18 11:04) Ketorolac Injection (Toradol Injection) (12/02/18 11:15) Diphenhydramine Injection (Benadryl Inje (12/02/18 11:15) Prochlorperazine Injection (Compazine In (12/02/18 11:15) Medications Given in ED Current Medications Medications Dose Ordered Sig/Luis Route Start Time Stop Time Status Last Admin Dose Admin Diphenhydramine HCl 25 mg ONCE ONCE IVP 12/02/18 11:15 12/02/18 11:16 DC 12/02/18 11:21 25 MG Ketorolac Tromethamine 15 mg ONCE ONCE IVP 12/02/18 11:15 12/02/18 11:16 DC 12/02/18 11:21 15 MG Prochlorperazine Edisylate 5 mg ONCE ONCE IV 12/02/18 11:15 12/02/18 11:16 DC 12/02/18 11:21 5 MG Vital Signs/I&O Capillary Refill : Departure Communication (Admissions) 1159-headache down to 2 out of 10, tingling is gone. Impression Primary Impression: Headache Qualified Codes: R51 - Headache Additional Impression: Weakness Disposition: 01 HOME, SELF-CARE Condition: Improved Departure-Patient Inst. Decision time for Depature: 11:11 Referrals: [facility] (PCP) Primary Care Physician DALE ALVES (Family) Primary Care Physician Patient Instructions: Headache, Adult Add. Discharge Instructions: 1. Return to ER for any concerns 2. Follow-up with your doctor next week 3. DONALD PERES APRN Dec 02, 2018 11:07
[2018-12-02] MEDS ORDERED: PROCHLORPERAZINE 10 MG/2ML INJ (COMPAZINE) IV ONE (11:15)
[2018-12-02] MEDS ORDERED: KETOROLAC 30 MG/ML VIAL IVP ONE (11:15)
[2018-12-02] MEDS ORDERED: diphenhydrAMINE 50 MG/ML INJ (BENADRYL) IVP ONE (11:15)
[2018-12-02 11:24] LABS: BASOPHILS % (AUTO) 1 % (0-10); EOSINOPHILS # (AUTO) 0.2 10^3/uL (0.0-0.3); EOSINOPHILS % (AUTO) 5 % (0-10); HEMATOCRIT 42 % (40-54); HEMOGLOBIN 14.4 G/DL (13.3-17.7); LYMPHOCYTES # (AUTO) 1.7 X 10^3 (1.0-4.0); LYMPHOCYTES % (AUTO) 37 % (12-44); MEAN CORPUSCULAR HEMOGLOBIN 30 PG (25-34); MEAN CORPUSCULAR HGB CONC 34 G/DL (32-36); MEAN CORPUSCULAR VOLUME 88 FL (80-99); MEAN PLATELET VOLUME 9.5 FL (7.4-10.4); MONOCYTES # (AUTO) 0.4 X 10^3 (0.0-1.0); MONOCYTES % (AUTO) 8 % (0-12); NEUTROPHILS # (AUTO) 2.3 X 10^3 (1.8-7.8); NEUTROPHILS % (AUTO) 50 % (42-75); PLATELET COUNT 249 10^3/uL (130-400); RED CELL DISTRIBUTION WIDTH 12.6 % (10.0-14.5); WHITE BLOOD COUNT 4.7 10^3/uL (4.3-11.0)
[2018-12-02 11:44] LABS: ALANINE AMINOTRANSFERASE 12 U/L (0-55); ALBUMIN 4.1 GM/DL (3.2-4.5); ALKALINE PHOSPHATASE 60 U/L (40-136); BILIRUBIN,TOTAL 0.5 MG/DL (0.1-1.0); BUN/CREATININE RATIO 16; CALCIUM 9.5 MG/DL (8.5-10.1); CARBON DIOXIDE 23 MMOL/L (21-32); CHLORIDE 105 MMOL/L (98-107); CREATININE SERUM 1.19 MG/DL (0.60-1.30); GFR ESTIMATED > 60; GLUCOSE 97 MG/DL (70-105); POTASSIUM 4.2 MMOL/L (3.6-5.0); SODIUM 138 MMOL/L (135-145); TOTAL PROTEIN 6.7 GM/DL (6.4-8.2)
--- NOTE | 2018-12-02 11:56 | NUR ---
PT STATES HIS PAIN IS DOWN TO A 2 OR 3 FROM A 10 WHICH IT WAS ON ARRIVAL, PT STATES IT IS LOUD IN ROOM AND CAN HEAR THE BUZZING FROM THE FLOURESCENT LIGHTS AND IS READY TO GO HOME, PHYSICIAN NOTIFIED OF THIS
[2018-12-02 12:05] VITALS: BP 102/78
== END 2018-12-02 12:05 | disposition home or self-care (01) ==
LOC: EDUNIT# 11:01 → ER 11:02
DX: R51 Headache (principal); R53.1 Weakness; G40.909 Epilepsy, unspecified, not intractable, without status epilepticus; Z86.69 Personal history of other diseases of the nervous system and sense organs; Z91.041 Radiographic dye allergy status; Z77.22 Contact with and (suspected) exposure to environmental tobacco smoke (acute) (chronic)
CPT/HCPCS: 36415; 80053; 85025; 96374; 96375; 99283

== ENCOUNTER 2019-10-04 15:14 | Emergency (ER) | payer MEDICARE, MEDICAID ==
[~2019-10-04] VITALS: Ht 190 cm; Wt 143.5 kg
--- NOTE | 2019-10-04 15:24 | ED General ---
General Stated Complaint: HEADACHE/DIZZINESS Source of Information: Patient Exam Limitations: No Limitations History of Present Illness Date Seen by Provider: October 04, 2019 Time Seen by Provider: 15:22 Initial Comments To ER with reports of headache and dizziness, this began earlier today, he took one of his Imitrex but no relief. He does have nausea with this. This started as a mild headache and progressively got worse over the following hours. He does have a history of headaches, no head injury. Timing/Duration: 1-2 Days Severity: Moderate Associated Systoms: Headaches, Nausea/Vomiting Allergies and Home Medications Allergies Coded Allergies: iodine (Verified Allergy, Unknown, 09/18/18) Home Medications Ondansetron 4 Mg Tab.rapdis, 4 MG SL Q4H PRN for NAUSEA/VOMITING Prescribed by: BUCK JAFFE on 08/10/18 0975 Patient Home Medication List Home Medication List Reviewed: Yes Review of Systems Review of Systems Constitutional: see HPI EENTM: see HPI Respiratory: no symptoms reported Cardiovascular: no symptoms reported Gastrointestinal: nausea Genitourinary: no symptoms reported Musculoskeletal: no symptoms reported Psychiatric/Neurological: Headache Hematologic/Lymphatic: No Symptoms Reported Immunological/Allergic: no symptoms reported Past Sdgtfqg-Fwkajl-Ybgeco Hx Patient Social History Type Used: Cigarettes 2nd Hand Smoke Exposure: Yes Recent Foreign Travel: No Contact w/Someone Who Travel: No Recent Hopitalizations: No Immunizations Up To Date Tetanus Booster (TDap): Unknown Seasonal Allergies Seasonal Allergies: No Past Medical History Surgeries: No Respiratory: No Cardiac: No Neurological: Yes Headaches /Migraines, Seizure Disorder Genitourinary: No Gastrointestinal: No Musculoskeletal: No Endocrine: No HEENT: No Cancer: No Did You Recieve Any Treatments: No Psychosocial: No Integumentary: No Blood Disorders: No Physical Exam Vital Signs Vital Signs - First Documented 10/04/19 15:23 Temp 37.0 Pulse 74 Resp 18 B/P (MAP) 130/89 (103) Pulse Ox 96 Capillary Refill : Height, Weight, BMI Height: 6'3.00" Weight: 265lbs. oz. 120.895012ks; BMI Method:Stated General Appearance: No Apparent Distress, WD/WN Eyes: Bilateral Eye Normal Inspection, Bilateral Eye PERRL, Bilateral Eye EOMI HEENT: PERRL/EOMI, TMs Normal Neck: Full Range of Motion, Normal Inspection Respiratory: No Accessory Muscle Use, No Respiratory Distress Gastrointestinal: Normal Bowel Sounds, Non Tender, Soft Extremity: Normal Capillary Refill, No Calf Tenderness Neurologic/Psychiatric: Alert, Oriented x3 Skin: Normal Color, Warm/Dry Progress/Results/Core Measures Suspected Sepsis SIRS Temperature: Pulse: Respiratory Rate: Blood Pressure / Mean: Results/Orders My Orders Orders - DONALD PERES APRN Ct Head Wo (10/04/19 15:21) Ketorolac Injection (Toradol Injection) (10/04/19 15:30) Diphenhydramine Injection (Benadryl Inje (10/04/19 15:30) Prochlorperazine Injection (Compazine In (10/04/19 15:30) Vital Signs/I&O 10/04/19 15:23 Temp 37.0 Pulse 74 Resp 18 B/P (MAP) 130/89 (103) Pulse Ox 96 Capillary Refill : Diagnostic Imaging Diagonstic Imaging: CT Comments NAME: DENA INTERIANO [facility] REC#: [id number] PT STATUS: REG ER : 1975 PHYSICIAN: DONALD PERES APRN ADMIT DATE: 10/04/19/ER Signed Date of Exam:10/04/19 CT HEAD WO EXAMINATION: CT head without contrast. TECHNIQUE: Multiple contiguous axial images were obtained through the brain without the use of intravenous contrast. All CT scans use one or more of the following dose optimizing techniques: automated exposure control, MA and/or KvP adjustment based on a patient size and exam type, or iterative reconstruction. HISTORY: Headache COMPARISON: None available. FINDINGS: The finney-white matter differentiation is normal. No mass effect or midline shift. The ventricles are normal in size and configuration. Basilar cisterns are patent. There are no intra- or extra-axial fluid collections. There is no intracranial hemorrhage. The orbits are normal. Paranasal sinuses are normal. Mastoid air cells are clear. No soft tissue abnormality is seen. No osseus lesions or fractures are seen. IMPRESSION: 1. No acute intracranial abnormality. Dictated by: Dictated on workstation # [id number] Dict: 10/04/19 1540 Trans: 10/04/19 1542 [facility] [id number] Interpreted by: BECK AU MD Electronically signed by: BECK AU MD 10/04/19 1542 Departure Impression Primary Impression: Headache Qualified Codes: R51 - Headache Disposition: 01 HOME, SELF-CARE Condition: Stable Departure-Patient Inst. Decision time for Depature: 15:24 Referrals: [facility] (PCP) Primary Care Physician DALE ALVES (Family) Primary Care Physician Patient Instructions: Headache, Adult DONALD PERES APRN October 04, 2019 15:24
[2019-10-04] MEDS ORDERED: PROCHLORPERAZINE 10 MG/2ML INJ (COMPAZINE) IM ONE (15:30)
[2019-10-04] MEDS ORDERED: diphenhydrAMINE 50 MG/ML INJ (BENADRYL) IM ONE (15:30)
[2019-10-04] MEDS ORDERED: KETOROLAC 60 MG/2 ML VIAL IM ONE (15:30)
[2019-10-04] MEDS ORDERED: SUMA100T2 (15:32)
--- NOTE | 2019-10-04 15:43 | Diagnostic Imaging Report ---
EXAMINATION: CT head without contrast. TECHNIQUE: Multiple contiguous axial images were obtained through the brain without the use of intravenous contrast. All CT scans use one or more of the following dose optimizing techniques: automated exposure control, MA and/or KvP adjustment based on a patient size and exam type, or iterative reconstruction. HISTORY: Headache COMPARISON: None available. FINDINGS: The finney-white matter differentiation is normal. No mass effect or midline shift. The ventricles are normal in size and configuration. Basilar cisterns are patent. There are no intra- or extra-axial fluid collections. There is no intracranial hemorrhage. The orbits are normal. Paranasal sinuses are normal. Mastoid air cells are clear. No soft tissue abnormality is seen. No osseus lesions or fractures are seen. IMPRESSION: 1. No acute intracranial abnormality. Dictated by: Dictated on workstation # [id number]
[2019-10-04 16:39] VITALS: BP 129/75
== END 2019-10-04 16:39 | disposition home or self-care (01) ==
LOC: EDUNIT# 15:14 → ER 15:15
DX: R51 Headache (principal); Z88.8 Allergy status to other drugs, medicaments and biological substances; Z77.22 Contact with and (suspected) exposure to environmental tobacco smoke (acute) (chronic); Z86.69 Personal history of other diseases of the nervous system and sense organs
CPT/HCPCS: 70450; 96372